=== PATIENT | female | born 1955 | race Caucasian/White ===

== ENCOUNTER → 2021-07-22 | Outpatient (CLI) | payer OTHER | LOC: COL.RAD 08:52 | DX: Z01.812 Encounter for preprocedural laboratory examination (principal); R91.1 Solitary pulmonary nodule; R06.02 Shortness of breath; R07.9 Chest pain, unspecified; Z20.822 Contact with and (suspected) exposure to COVID-19 | CPT/HCPCS: Q9967 ==

== ENCOUNTER 2024-04-05 13:56 | Emergency (ER) | payer SELFPAY ==
[~2024-04-05] VITALS: Ht 170.2 cm; Wt 96.4 kg
[2024-04-05 14:06] VITALS: TEMP 98.7
[2024-04-05 17:22] VITALS: BP 174/74; PULSE 87
== END 2024-04-05 17:23 | disposition home or self-care (01) ==
LOC: COL.ER 13:56
DX: S82.832A Other fracture of upper and lower end of left fibula, initial encounter for closed fracture (principal); X58.XXXA Exposure to other specified factors, initial encounter
CPT/HCPCS: 31865; L4386